=== PATIENT | male | born 1995 | race Caucasian/White ===

== ENCOUNTER 2017-02-08 17:21 | Emergency (ER) | payer SELFPAY ==
[2017-02-08 18:58] VITALS: BP 135/88
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
== END 2017-02-08 20:02 | disposition home or self-care (01) ==
LOC: UCCORT 17:21
DX: M54.5 Low back pain (principal); M54.16 Radiculopathy, lumbar region
CPT/HCPCS: 99202; G0463

== ENCOUNTER 2017-07-11 19:21 | Emergency (ER) | payer BC ==
[2017-07-11 19:34] VITALS: BP 143/69
[2017-07-11] MEDS ORDERED: BSS OPTH.SOL* BTL ONE (19:35)
[2017-07-11] MEDS ORDERED: Tetracaine 0.5% OPTH.SOL 4 ML* 1 DROP BTL ONE (19:35)
[2017-07-11] MEDS ORDERED: Fluorescein Sodium TOPICAL* 1 MG TEST ONE (19:35)
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
[2017-07-11] MEDS ORDERED: Fluorescein Sodium TOPICAL* 1 MG TEST OPHTHALMIC ONE (21:00)
[2017-07-11] MEDS ORDERED: Tetracaine 0.5% OPTH.SOL 4 ML* 1 DROP BTL LEFT EYE ONE (21:00)
== END 2017-07-11 20:23 | disposition home or self-care (01) ==
LOC: UCCORT 19:21
DX: S05.02XA Injury of conjunctiva and corneal abrasion without foreign body, left eye, initial encounter (principal); X58.XXXA Exposure to other specified factors, initial encounter; Y92.9 Unspecified place or not applicable
CPT/HCPCS: 99213; A9270-GY; G0463